=== PATIENT | female | born 1935 | race Caucasian/White ===

== ENCOUNTER 2021-03-03 12:53 | Observation (INO) | payer OTHER, SELFPAY ==
[2021-03-03] VITALS (16 sets, daily range): BP systolic 138–186; BP diastolic 64–82; PULSE 65–87; RESP 14–23; TEMP 36.5–36.6; O2SAT 93–100; BMI 20.5; BMI 21.2
--- NOTE | 2021-03-03 13:00 | ED.SYNCOPE ---
HPI - Syncope General Chief Complaint: Syncope Stated Complaint: Near Syncope Time Seen by Provider: 03/03/21 12:59 History of Present Illness HPI narrative: Gretta presents today with chief complaint of feeling like she was going to pass out. This feeling came on suddenly about an hour and half ago. She reports that she was sitting down at the table after eating breakfast. She suddenly felt weak and nauseous. She is concerned that if she stood up she would pass out. Her symptoms have improved but she is still feeling more weak than normal. She was having breakfast with her friends as she is from out of town visiting. She was able to communicate and speak clearly through the entire process per patient and her . She has past medical history of hypertension and took her antihypertensives this morning. No recent dose adjustments. She denies any significant chest pain, upper back pain, headache, dizziness, vision changes, or any other acute concerns or complaints. She denies any cardiac history aside from hypertension. She denies any previous heart attacks, strokes, or feeling similar to this in the past. Related Data Home Medications Medication Instructions Recorded Confirmed atenolol 25 mg tablet 25 mg PO BID 03/03/21 03/03/21 brimonidine 0.2 % eye drops 1 drp EYE-BOTH TID 03/03/21 03/03/21 dorzolamide 22.3 mg-timolol 6.8 1 drp EYE-BOTH TID 03/03/21 03/03/21 mg/mL eye drops hydrochlorothiazide 25 mg tablet 25 mg PO DAILY PRN 03/03/21 03/03/21 latanoprost 0.005 % eye drops 1 drp EYE-BOTH BEDTIME 03/03/21 03/03/21 Allergies Allergy/AdvReac Type Severity Reaction Status Date / Time Penicillins Allergy Unknown Verified 03/03/21 13:07 Review of Systems Review of Systems Narrative: As per HPI Patient History Medical History Glaucoma Hypertension, essential Surgical History History of right hip replacement Family History Mother Cancer Hypertension Father Cancer Social History household members: spouse Smoking Status: Former smoker alcohol intake: current Exam Narrative Exam Narrative: Exam Narrative: Const General: cooperative, ill-appearing Nutritional Appearance: average body habitus Orientation: alert and oriented x3 HENMT Head: normal to inspection and atraumatic Ears: hearing grossly normal bilaterally Nose: external nose normal and nares normal Face and sinus: normal facial exam Neck Neck: normal visual inspection and supple, carotid bruits Cardiac Regular rate and rhythm, no discernible murmur, rubs or gallops. Resp Effort & Inspection: normal respiratory effort, able to speak in complete sentences, no audible wheezes, not labored, no nasal flaring and no respiratory distress, clear to auscultation bilaterally. Neuro General: alert, oriented x3, gait not assessed, tone normal and moves all extremities, normal coordination, normal finger-nose, normal rapid alternating movement upper extremity, no cranial nerve deficits. Cognition: normal cognition Speech: speech normal Skin: Slightly pale. No rash or lesions noted. Psych Appearance: grossly normal and well kempt Mental Status: mental status grossly normal Speech and Movement: speech and movement normal Mood: congruent mood Affect: normal affect Initial Vital Signs Initial Vital Signs: Vital Signs Temperature 97.9 F 03/03/21 13:07 Pulse Rate 65 03/03/21 13:07 Respiratory Rate 18 03/03/21 13:07 Blood Pressure 185/82 H 03/03/21 13:07 Pulse Oximetry 97 03/03/21 13:07 Course Course Course Narrative: I just spoke with Dr. George with cardiology. We discussed the patient's case and her concerning EKG findings. He recommended monitoring with telemetry and probable echocardiogram in the a.m.. I will call hospitalist at this time and speak with them. Orders Ordered: Acetaminophen (Acetaminophen 325 Mg Tablet) 650 mg PO Q6HR PRN PRN Reason: Fever/Mild Pain (1-3) Al Hydrox/Mg Hydrox/Simethicone (Mag Hydrox/Alum/Simeth 30 Ml Udc) 30 ml PO Q6HR PRN PRN Reason: Dyspepsia Atenolol (Atenolol 25 Mg Tablet) 25 mg PO BID [facility] Last Admin: 03/03/21 22:00 Dose: 25 mg Documented by: DARNELL Brimonidine Tartrate (Brimonidine 0.2% Ophth 5 Ml) 1 drops EYE-BOTH TID [facility] Last Admin: 03/03/21 23:03 Dose: Not Given Documented by: DARNELL Diphenhydramine HCl (Diphenhydramine 25 Mg Tablet) 50 mg PO BEDTIME PRN PRN Reason: Insomnia Last Admin: 03/03/21 23:41 Dose: 50 mg Documented by: REYMUNDO Dorzolamide/Timolol (Dorzolamide/Timolol Ophth 10 Ml) 1 drops EYE-BOTH TID [facility] Last Admin: 03/03/21 23:04 Dose: Not Given Documented by: DARNELL Enoxaparin Sodium (Enoxaparin 40 Mg/0.4 Ml Syringe) 40 mg SUBCUT DAILY [facility] Sodium Chloride (Normal Saline 0.9%) 1,000 mls @ 100 mls/hr IV CONT [facility] Last Admin: 03/03/21 22:03 Dose: 100 mls/hr Documented by: DARNELL Latanoprost (Latanoprost 0.005% Ophth 2.5 Ml) 1 drops EYE-BOTH BEDTIME [facility] Last Admin: 03/03/21 23:04 Dose: Not Given Documented by: DARNELL Naloxone HCl (Naloxone 0.4 Mg/Ml Vial) 0.2 mg IV Q2MIN PRN PRN Reason: Opiate Reversal Ondansetron HCl (Ondansetron 4 Mg/2 Ml Inj) 4 mg IV Q8HR PRN PRN Reason: Nausea And Vomiting Sennosides (Sennosides 8.6 Mg Tablet) 17.2 mg PO BEDTIME [facility] Last Admin: 03/03/21 22:00 Dose: 17.2 mg Documented by: DARNELL Discontinued Medications Aspirin (Aspirin 81 Mg Chew Tab) 324 mg PO NOW ONE Stop: 03/03/21 13:55 Last Admin: 03/03/21 14:01 Dose: 324 mg Documented by: ALEXANDRE Ondansetron HCl (Ondansetron 4 Mg/2 Ml Inj) 4 mg IV NOW ONE Stop: 03/03/21 13:00 Last Admin: 03/03/21 13:04 Dose: 4 mg Documented by: ELE Vital Signs Vital signs: Vital Signs - 8 hr 03/03/21 13:07 03/03/21 14:57 03/03/21 15:00 Temperature 97.9 F Pulse Rate 65 80 76 Pulse Rate [Orthostatic Lying] Pulse Rate [Orthostatic Sitting] Pulse Rate [Orthostatic Standing] Respiratory Rate 18 23 Blood Pressure 185/82 H 146/64 H Blood Pressure [Orthostatic Lying] Blood Pressure [Orthostatic Sitting] Blood Pressure [Orthostatic Standing] Pulse Oximetry 97 99 100 03/03/21 15:30 03/03/21 16:49 Temperature Pulse Rate 77 Pulse Rate [Orthostatic Lying] 76 Pulse Rate [Orthostatic Sitting] 76 Pulse Rate [Orthostatic Standing] 81 Respiratory Rate 22 Blood Pressure 139/66 Blood Pressure [Orthostatic Lying] 138/68 Blood Pressure [Orthostatic Sitting] 144/81 H Blood Pressure [Orthostatic Standing] 157/72 H Pulse Oximetry 98 MDM - Syncope Lab Data Result diagrams: 03/03/21 12:45 03/04/21 06:35 Labs: Lab Results 03/03/21 03/03/21 03/03/21 Range/Units 12:45 12:45 12:45 WBC 8.8 (4.5-11.0) X10^3/uL RBC 4.52 (4.0-5.2) X10^6/uL Hgb 13.1 (12.0-16.0) g/dL Hct 39.4 (36-46) % MCV 87.2 (80-100) fL MCH 29.0 (26-34) PG MCHC 33.3 (30-36) % RDW 13.8 (11.6-14.8) % Plt Count 394 (150-400) X10^3/uL Neut % (Auto) 63.3 (50-75) % Lymph % (Auto) 23.4 L (25-40) % [place] % (Auto) 11.0 (3-14) % Eos % (Auto) 1.7 L (2-4) % Baso % (Auto) 0.6 (0-2) % Neut # (Auto) 5600 (0446-3663) /uL Lymph # (Auto) 2100 (9546-0055) /uL [place] # (Auto) 1000 H (0-900) /uL Eos # (Auto) 100 (0-450) /uL Baso # (Auto) 100 (0-100) /uL PT 11.3 (10.1-12.7) SECONDS INR 1.0 (0.9-1.3) Sodium 133 L (137-145) mmol/L Potassium 3.6 (3.4-5.1) mmol/L Chloride 96 L (98-107) mmol/L Carbon Dioxide 26 (22-32) mmol/L BUN 22 H (7-17) mg/dL Creatinine 0.76 (0.52-1.04) mg/dL Estimated GFR > 60.0 (>60) mL/min BUN/Creatinine Ratio 28.9 H (6-22) Glucose 86 (80-110) mg/dL Calcium 10.2 (8.4-10.2) mg/dL Magnesium (1.6-2.3) mg/dL Total Bilirubin 0.5 (0.2-1.3) mg/dL AST 25 (14-36) IU/L ALT 14 (<35) IU/L Alkaline Phosphatase 75 (38-126) U/L Total Creatine Kinase 35 (30-135) U/L CK-MB (CK-2) TNP CK-MB (CK-2) Rel Index TNP Troponin I < 0.012 (0.01-0.034) ng/mL NT-Pro-B Natriuret Pep (<450) pg/mL Total Protein 7.3 (6.3-8.2) g/dL Albumin 4.3 (3.5-5.0) g/dL Globulin 3.0 (1.7-4.1) g/dL Albumin/Globulin Ratio 1.4 (1.0-2.8) Urine RBC (0-5/HPF) Urine WBC (0-5/HPF) Urine Bacteria (None) Ur Culture Indicated? 03/03/21 03/03/21 03/03/21 Range/Units 12:45 15:28 15:28 WBC (4.5-11.0) X10^3/uL RBC (4.0-5.2) X10^6/uL Hgb (12.0-16.0) g/dL Hct (36-46) % MCV (80-100) fL MCH (26-34) PG MCHC (30-36) % RDW (11.6-14.8) % Plt Count (150-400) X10^3/uL Neut % (Auto) (50-75) % Lymph % (Auto) (25-40) % [place] % (Auto) (3-14) % Eos % (Auto) (2-4) % Baso % (Auto) (0-2) % Neut # (Auto) (2746-8040) /uL Lymph # (Auto) (9834-4843) /uL Meriwether # (Auto) (0-900) /uL Eos # (Auto) (0-450) /uL Baso # (Auto) (0-100) /uL PT (10.1-12.7) SECONDS INR (0.9-1.3) Sodium (137-145) mmol/L Potassium (3.4-5.1) mmol/L Chloride (98-107) mmol/L Carbon Dioxide (22-32) mmol/L BUN (7-17) mg/dL Creatinine (0.52-1.04) mg/dL Estimated GFR (>60) mL/min BUN/Creatinine Ratio (6-22) Glucose (80-110) mg/dL Calcium (8.4-10.2) mg/dL Magnesium 1.8 (1.6-2.3) mg/dL Total Bilirubin (0.2-1.3) mg/dL AST (14-36) IU/L ALT (<35) IU/L Alkaline Phosphatase (38-126) U/L Total Creatine Kinase (30-135) U/L CK-MB (CK-2) CK-MB (CK-2) Rel Index Troponin I < 0.012 (0.01-0.034) ng/mL NT-Pro-B Natriuret Pep 439 (<450) pg/mL Total Protein (6.3-8.2) g/dL Albumin (3.5-5.0) g/dL Globulin (1.7-4.1) g/dL Albumin/Globulin Ratio (1.0-2.8) Urine RBC (0-5/HPF) Urine WBC (0-5/HPF) Urine Bacteria (None) Ur Culture Indicated? 03/03/21 Range/Units 16:45 WBC (4.5-11.0) X10^3/uL RBC (4.0-5.2) X10^6/uL Hgb (12.0-16.0) g/dL Hct (36-46) % MCV (80-100) fL MCH (26-34) PG MCHC (30-36) % RDW (11.6-14.8) % Plt Count (150-400) X10^3/uL Neut % (Auto) (50-75) % Lymph % (Auto) (25-40) % [place] % (Auto) (3-14) % Eos % (Auto) (2-4) % Baso % (Auto) (0-2) % Neut # (Auto) (7096-9581) /uL Lymph # (Auto) (0219-9898) /uL [place] # (Auto) (0-900) /uL Eos # (Auto) (0-450) /uL Baso # (Auto) (0-100) /uL PT (10.1-12.7) SECONDS INR (0.9-1.3) Sodium (137-145) mmol/L Potassium (3.4-5.1) mmol/L Chloride (98-107) mmol/L Carbon Dioxide (22-32) mmol/L BUN (7-17) mg/dL Creatinine (0.52-1.04) mg/dL Estimated GFR (>60) mL/min BUN/Creatinine Ratio (6-22) Glucose (80-110) mg/dL Calcium (8.4-10.2) mg/dL Magnesium (1.6-2.3) mg/dL Total Bilirubin (0.2-1.3) mg/dL AST (14-36) IU/L ALT (<35) IU/L Alkaline Phosphatase (38-126) U/L Total Creatine Kinase (30-135) U/L CK-MB (CK-2) CK-MB (CK-2) Rel Index Troponin I (0.01-0.034) ng/mL NT-Pro-B Natriuret Pep (<450) pg/mL Total Protein (6.3-8.2) g/dL Albumin (3.5-5.0) g/dL Globulin (1.7-4.1) g/dL Albumin/Globulin Ratio (1.0-2.8) Urine RBC 0-1/hpf (0-5/HPF) Urine WBC 10-30/hpf H (0-5/HPF) Urine Bacteria Many (>30) H (None) Ur Culture Indicated? Specimen cultured Point of Care Testing Glucose POC 86 Urine Dip Bedside Urine Glucose Negative Bedside Urine Bilirubin - Negative Bedside Urine Ketone - Negative Urine Specific [place] 1.015 Bedside Urine Occult Blood - Negative Bedside Urine pH 6.0 Bedside Urine Protein - Negative Bedside Urine Urobilinogen - Negative Bedside Urine Nitrite - Negative Bedside Urine Leukocytes ++ 125 Esterase MDM Narrative Medical decision making narrative: Differential diagnosis includes acute coronary syndrome, cardiac arrhythmia, stroke, TIA, dehydration. Patient has had a reassuring evaluation here in the emergency department. She remains neurologically intact without any obvious deficits. EKG does show right bundle-branch block, first-degree AV block, and bifascicular block. No previous EKGs to compare to. Patient denies any chest pain, difficulty breathing, diaphoresis. No known cardiac history aside from hypertension. Troponins x2 are negative. Orthostatic vital signs are within normal limits and patient was asymptomatic. She was ambulatory around the department for road rest without any reproduction of her symptoms or concerning vital sign changes. Per history, she did not have any focal deficits which is reassuring that a TIA did not occur. Her EKG findings are new. Review of an EKG in 2013 requested from her PCP did not show any specific conduction abnormalities. After discussion with cardiology, we will admit the patient for obs on telemetry. All of this was discussed with the patient and her and they agreed to plan. Discharge Plan Departure Patient Disposition: Admitted As Inpatient Clinical Impression: Pre-syncope, First degree heart block, RBBB, LAFB (left anterior fascicular block) Discharge Date/Time: 03/03/21 18:39 Admit Date/Time: 03/03/21 17:51 Admit Provider: Farhad Jesus
[2021-03-03] MEDS: ONDANSETRON 4 MG/2 ML INJ IV (13:04)
--- NOTE | 2021-03-03 13:15 | DI.RAD.S_ITS ---
PROCEDURE: XR CHEST 1V INDICATIONS: altered mental status TECHNIQUE: One view of the chest was acquired. COMPARISON: None. FINDINGS: Surgical changes and devices: None. Lungs and pleura: Lungs are clear. No pleural effusions or pneumothorax. Mediastinum: Mediastinal contours appear normal. Heart size is normal. Bones and chest wall: No suspicious bony lesions. Overlying soft tissues appear unremarkable. Severe bilateral glenohumeral joint degenerative arthritis. IMPRESSION: No evidence acute pulmonary process. Dictated by: Elías Holder M.D. on 03/03/2021 at 13:32 Approved by: Elías Holder M.D. on 03/03/2021 at 13:33
--- NOTE | 2021-03-03 13:24 | DI.CT.S_ITS ---
PROCEDURE: CT HEAD/BRAIN WO CON INDICATIONS: pre syncope TECHNIQUE: Noncontrast 4.5 mm thick angled axial sections acquired from the foramen magnum to the vertex, with coronal and sagittal reformats. For radiation dose reduction, the following was used: automated exposure control, adjustment of mA and/or kV according to patient size. COMPARISON: [facility], CR, XR CHEST 1V, 03/03/2021, 13:17. FINDINGS: Image quality: Excellent. CSF spaces: Basal cisterns are patent. No extra-axial fluid collections. The ventricles are symmetric in size and shape. Brain: No intracranial bleeds or masses. There is cerebral volume loss for age, with resultant ventricular and sulcal prominence. There are periventricular and deep white matter chronic small vessel ischemic changes. There is intracranial internal carotid artery atherosclerosis. Skull and face: Calvarium and visualized facial bones appear intact, without suspicious lesions. Incidental note is made of hyperostosis frontalis. This is not considered to be pathologic in a woman of this age. Sinuses: Visualized sinuses and mastoids are clear. IMPRESSION: Noncontrast head CT examination within normal limits for age, without an imaging explanation found for the patient's presenting history. Dictated by: Wyatt Mcgee M.D. on 03/03/2021 at 12:44 Approved by: Wyatt Mcgee M.D. on 03/03/2021 at 12:45
[2021-03-03 13:29] LABS: Alanine Aminotransferase 14 IU/L (<35); Albumin 4.3 g/dL (3.5-5.0); Albumin Globulin Ratio 1.4 (1.0-2.8); Alkaline Phosphatase 75 U/L (38-126); Aspartate Aminotransferase 25 IU/L (14-36); BUN Creatinine Ratio 28.9 (6-22); Bilirubin Total 0.5 mg/dL (0.2-1.3); Blood Urea Nitrogen 22 mg/dL (7-17); Calcium 10.2 mg/dL (8.4-10.2); Carbon Dioxide 26 mmol/L (22-32); Chloride 96 mmol/L (98-107); Creatine Kinase 35 U/L (30-135); Estimated Glomerular Filt Rate > 60.0 mL/min (>60); Glucose 86 mg/dL (80-110); HEMOLYSIS 27 (0-50); Potassium 3.6 mmol/L (3.4-5.1); Sodium 133 mmol/L (137-145); Total Protein 7.3 g/dL (6.3-8.2)
[2021-03-03 13:40] LABS: Add Manual Diff / Slide Review NO; Basophils Absolute Auto 100 /uL (0-100); Basophils Percent Auto 0.6 % (0-2); Eosinophils Absolute Auto 100 /uL (0-450); Eosinophils Percent Auto 1.7 % (2-4); Hematocrit 39.4 % (36-46); Hemoglobin 13.1 g/dL (12.0-16.0); Lymphocytes Absolute Auto 2100 /uL (1100-4500); Lymphocytes Percent Auto 23.4 % (25-40); Mean Corpuscular HGB Conc 33.3 % (30-36); Mean Corpuscular Volume 87.2 fL (80-100); Monocytes Absolute Auto 1000 /uL (0-900); Neutrophils Absolute Auto 5600 /uL (1500-7000); Neutrophils Percent Auto 63.3 % (50-75); Platelet Count 394 X10^3/uL (150-400); Red Blood Cell Count 4.52 X10^6/uL (4.0-5.2); Red Cell Distribution Width 13.8 % (11.6-14.8); Troponin I < 0.012 ng/mL (0.01-0.034); White Blood Cell Count 8.8 X10^3/uL (4.5-11.0)
[2021-03-03] MEDS: ASPIRIN 81 MG CHEW TAB 324 MG PO (14:01)
[2021-03-03 14:02] LABS: Prothrombin Time 11.3 SECONDS (10.1-12.7)
[2021-03-03 14:52] LABS: NT-proBNP (BNP-Adult 18+) 439 pg/mL (<450)
[2021-03-03 16:01] LABS: Troponin I < 0.012 ng/mL (0.01-0.034)
--- NOTE | 2021-03-03 16:51 | PC.NURSE ---
Pt did well ambulating from the bathroom and back.
--- NOTE | 2021-03-03 16:56 | PC.NURSE ---
Patient was able to get out of bed and walk SBA to the bathroom. Pt did well and stopped a few times to rest.
[2021-03-03 18:23] LABS: Bacteria Urine Many (>30); Culture Indicated Urine Specimen Cultured; RBC Urine 0-1/HPF (0-5/HPF); WBC Urine 10-30/HPF (0-5/HPF)
[2021-03-03 19:41] LABS: COVID19 - ADMIT (NP swab/PCR) Negative (Negative)
[2021-03-03 20:08] LABS: Magnesium 1.8 mg/dL (1.6-2.3)
--- NOTE | 2021-03-03 21:04 | P.HP_ITS ---
History of Present Illness History of Present Illness Date Patient Seen: 03/03/21 Time Patient Seen: 20:00 Chief complaint: Near Syncope Narrative: Patient is a 85 year old female Gretta Rodriguez who presented to the ED today with chief complaint of feeling like she was going to pass out. This feeling came on suddenly about an hour and half ago. She states that she lacked the balance & coordination to even walk with her walker. She reports that she was sitting down at the table after eating breakfast. She suddenly felt weak and nauseous. She is concerned that if she stood up she would pass out. Her symptoms have improved but she is still feeling more weak than normal. She was having breakfast with her friends as she is from out of town visiting. She was able to communicate and speak clearly through the entire process per patient and her . She has past medical history of hypertension and took her antihypertensives this morning. Patient also reports that she takes hydrochlorothiazide daily as needed for lower extremity edema and started taking it once daily approximately 1 month ago. Patient also has history of glaucoma. She denies any significant chest pain, upper back pain, headache, dizziness, vision changes, or any other acute concerns or complaints. She denies any cardiac history aside from hypertension. She denies any previous heart attacks, strokes, or feeling similar to this in the past. Upon admit patient is resting comfortably in bed and denies any signs or symptoms at this time. Patient appears dry volume depleted, dry mucous membranes and poor skin turgor. Patient's vitals upon admit temp was stable at 97.7, BP slightly elevated at 150 7/65, HR 77, RR 19, O2 sat 98% on room air. Patient's CBC was unremarkable for any anemias, patient's CMP demonstrated slight hyponatremia sodium 133, chloride 96, BUN 22. All a chemistries were normal patient's BNP was mildly elevated at 439, troponin negative at< 0.012. Urine was positive and sent for culture. Head CT: Within normal limits for age, no acute findings that could explain patient's symptoms. Chest x-ray was without any acute cardiopulmonary processes. EKG does show right bundle-branch block, first-degree AV block, and bifascicular block. Dr. Wolf was able to consult wire twisting machine operator Dr. Barrios from [facility], who stated patient's previous EKG from 2013 was normal sinus rhythm without any block, noting that this was a change. Patient History Medical History Glaucoma Hypertension, essential Surgical History History of right hip replacement Family & Social History Family History Mother Cancer Hypertension Father Cancer Social History: household members spouse Prior Living Arrangements House Safety & Behavioral: Feels Safe in Current Yes Environment Been Physically Hurt or No Threatened By a Person Suicidal Ideation Description None Suicide Plan Description No Plan Tobacco & Substance use: Smoking Status Former smoker smoked for 35 yrs, quit 30 yrs ago. alcohol intake current alcohol intake frequency a few times a week 1-2 glasses of wine QD Substance Use Type does not use Meds Home Medications and Allergies Home Medications Medication Instructions Recorded Confirmed Type atenolol 25 mg tablet 25 mg PO BID 03/03/21 03/03/21 History brimonidine 0.2 % eye drops 1 drp EYE-BOTH TID 03/03/21 03/03/21 History dorzolamide 22.3 mg-timolol 6.8 1 drp EYE-BOTH TID 03/03/21 03/03/21 History mg/mL eye drops hydrochlorothiazide 25 mg tablet 25 mg PO DAILY PRN 03/03/21 03/03/21 History latanoprost 0.005 % eye drops 1 drp EYE-BOTH BEDTIME 03/03/21 03/03/21 History Allergies Allergy/AdvReac Type Severity Reaction Status Date / Time Penicillins Allergy Unknown Verified 03/03/21 13:07 Review of Systems Review of Systems Narrative: Patient denies any signs or symptoms at this time, all signs or symptoms were reviewed with the patient to include all that already documented within chart. Exam Vital Signs (past 8 hours): - 03/03/21 13:07 03/03/21 14:57 03/03/21 15:00 Temperature 97.9 F Pulse Rate 65 80 76 Pulse Rate [Orthostatic Lying] Pulse Rate [Orthostatic Sitting] Pulse Rate [Orthostatic Standing] Respiratory Rate 18 23 Blood Pressure 185/82 H 146/64 H Blood Pressure [Orthostatic Lying] Blood Pressure [Orthostatic Sitting] Blood Pressure [Orthostatic Standing] Pulse Oximetry 97 99 100 03/03/21 15:30 03/03/21 16:00 03/03/21 16:22 Temperature Pulse Rate 77 76 76 Pulse Rate [Orthostatic Lying] Pulse Rate [Orthostatic Sitting] Pulse Rate [Orthostatic Standing] Respiratory Rate 22 17 Blood Pressure 139/66 138/68 144/81 H Blood Pressure [Orthostatic Lying] Blood Pressure [Orthostatic Sitting] Blood Pressure [Orthostatic Standing] Pulse Oximetry 98 98 93 03/03/21 16:24 03/03/21 16:42 03/03/21 16:49 Temperature Pulse Rate 80 87 Pulse Rate [Orthostatic Lying] 76 Pulse Rate [Orthostatic Sitting] 76 Pulse Rate [Orthostatic Standing] 81 Respiratory Rate Blood Pressure 157/72 H 181/81 H Blood Pressure [Orthostatic Lying] 138/68 Blood Pressure [Orthostatic Sitting] 144/81 H Blood Pressure [Orthostatic Standing] 157/72 H Pulse Oximetry 99 98 03/03/21 17:00 03/03/21 17:30 03/03/21 17:31 Temperature Pulse Rate 71 74 74 Pulse Rate [Orthostatic Lying] Pulse Rate [Orthostatic Sitting] Pulse Rate [Orthostatic Standing] Respiratory Rate 19 15 14 Blood Pressure 141/69 H 165/72 H Blood Pressure [Orthostatic Lying] Blood Pressure [Orthostatic Sitting] Blood Pressure [Orthostatic Standing] Pulse Oximetry 98 98 96 03/03/21 18:00 03/03/21 18:55 Temperature 97.7 F Pulse Rate 73 77 Pulse Rate [Orthostatic Lying] Pulse Rate [Orthostatic Sitting] Pulse Rate [Orthostatic Standing] Respiratory Rate 19 17 Blood Pressure 186/72 H 157/65 H Blood Pressure [Orthostatic Lying] Blood Pressure [Orthostatic Sitting] Blood Pressure [Orthostatic Standing] Pulse Oximetry 99 98 Oxygen Delivery Method Room Air Oxygen Flow Rate 0 Narrative Exam Narrative: General: Patient is a well-developed, moderately nourished, thin elderly female who looks fluid depleted, in no distress at this time. HEENT: Normocephalic, atraumatic, extraocular muscles intact, oral pharynx is clear and mucous membranes are dry. Neck is supple and symmetric, trachea is midline, no adenopathy, no thyroid enlargement, nontender, no masses palpated. Negative for JVD Chest: Normal AP diameter and contour without kyphoscoliosis, no nasal flaring, retractions, or tachypneic labored Lungs: Auscultation of all lung coyle are clear without adventitious sounds, wheezes, rhonchi, or rales. Cardio: S1 & S2 with regular rate and rhythm with possible whooshing murmur heard loudest over left midclavicular line about 4th intercostal space but without rubs, or gallops, no carotid bruit, no cardiac pulsations present. Abdomen: Soft nontender, negative for organomegaly, or masses. Bowel sounds are present in all 4 quadrants without guarding or rebound, no CVA tenderness. Musculoskeletal: Muscle strength and tone are equal within normal limits, no deformity, crepitus, effusions, cyanosis, clubbing or edema present. Full range of motion intact radial and pedal pulses are normal. Skin: Warm dry, poor skin turgor and intact without rashes, ulcerations or petechiae. Neuro: Alert and orientated x3, strength is +5/5 in all extremities, sensation to touch intact, no gross deficits noted of cranial nerves. Psych: Patient has a well-kept appearance, appropriate affect, mental status attitude thought context and judgment are appropriate for age. Objective Labs Result Diagrams: 03/03/21 12:45 03/03/21 12:45 Labs: Laboratory Results - last 24 hr 03/03/21 03/03/21 03/03/21 12:45 12:45 12:45 WBC 8.8 RBC 4.52 Hgb 13.1 Hct 39.4 MCV 87.2 MCH 29.0 MCHC 33.3 RDW 13.8 Plt Count 394 Neut % (Auto) 63.3 Lymph % (Auto) 23.4 L Dewitt % (Auto) 11.0 Eos % (Auto) 1.7 L Baso % (Auto) 0.6 Neut # (Auto) 5600 Lymph # (Auto) 2100 Dewitt # (Auto) 1000 H Eos # (Auto) 100 Baso # (Auto) 100 PT 11.3 INR 1.0 Sodium 133 L Potassium 3.6 Chloride 96 L Carbon Dioxide 26 BUN 22 H Creatinine 0.76 Estimated GFR > 60.0 BUN/Creatinine Ratio 28.9 H Glucose 86 Calcium 10.2 Magnesium Total Bilirubin 0.5 AST 25 ALT 14 Alkaline Phosphatase 75 Total Creatine Kinase 35 CK-MB (CK-2) TNP CK-MB (CK-2) Rel Index TNP Troponin I < 0.012 NT-Pro-B Natriuret Pep Total Protein 7.3 Albumin 4.3 Globulin 3.0 Albumin/Globulin Ratio 1.4 Urine RBC Urine WBC Urine Bacteria Ur Culture Indicated? SARS-CoV-2 (PCR) 03/03/21 03/03/21 03/03/21 12:45 15:28 15:28 WBC RBC Hgb Hct MCV MCH MCHC RDW Plt Count Neut % (Auto) Lymph % (Auto) Dewitt % (Auto) Eos % (Auto) Baso % (Auto) Neut # (Auto) Lymph # (Auto) Dewitt # (Auto) Eos # (Auto) Baso # (Auto) PT INR Sodium Potassium Chloride Carbon Dioxide BUN Creatinine Estimated GFR BUN/Creatinine Ratio Glucose Calcium Magnesium 1.8 Total Bilirubin AST ALT Alkaline Phosphatase Total Creatine Kinase CK-MB (CK-2) CK-MB (CK-2) Rel Index Troponin I < 0.012 NT-Pro-B Natriuret Pep 439 Total Protein Albumin Globulin Albumin/Globulin Ratio Urine RBC Urine WBC Urine Bacteria Ur Culture Indicated? SARS-CoV-2 (PCR) 03/03/21 03/03/21 16:45 17:54 WBC RBC Hgb Hct MCV MCH MCHC RDW Plt Count Neut % (Auto) Lymph % (Auto) Dewitt % (Auto) Eos % (Auto) Baso % (Auto) Neut # (Auto) Lymph # (Auto) Dewitt # (Auto) Eos # (Auto) Baso # (Auto) PT INR Sodium Potassium Chloride Carbon Dioxide BUN Creatinine Estimated GFR BUN/Creatinine Ratio Glucose Calcium Magnesium Total Bilirubin AST ALT Alkaline Phosphatase Total Creatine Kinase CK-MB (CK-2) CK-MB (CK-2) Rel Index Troponin I NT-Pro-B Natriuret Pep Total Protein Albumin Globulin Albumin/Globulin Ratio Urine RBC 0-1/hpf Urine WBC 10-30/hpf H Urine Bacteria Many (>30) H Ur Culture Indicated? Specimen cultured SARS-CoV-2 (PCR) Negative Assessment & Plan Assessment & Plan narrative: Patient is a relatively healthy 85-year-old female with a history of hypertension and glaucoma who reports several episodes of presyncope within last 24 hours. In ER patient's EKG demonstrated a new right bundle vernon block, first-degree AV block and bifascicular block which were new changes from previous EKG. Patient will be monitored overnight gentle rehyd ration repeat troponins and echo tomorrow. 1. Presyncope in the setting of new right bundle-branch block, first-degree AV block, and bifascicular block, acute, present on admission -Rule out hypoglycemia, hypotension, dehydration, stroke, TIA, UTI -patient did verbalize to me that she has been taking her HCTZ for approximately 1 month I suspect possible dehydration in combination with new EKG changes. UA was also positive and sent for culture. -EKG: right bundle-branch block, first-degree AV block, and bifascicular block, sodium 133, chloride 96, BUN 22, BNP 439, troponin negative at< 0.012 x2. -orthostatics Q shift, normal saline 100 cc/hour for gentle rehydration, blood sugar checks for 24 hours ACHS, Heart Score:5 -echo ordered for tomorrow, repeat troponin total x3. -Fall precautions, PT/OT evaluation. -urinalysis cultures pending -Labs:repeat BNP, Trop, TSH, BMP in am -lost IV access while after hours PICC RN was onsite for another patient, ordered midline placement due to multiple failed attempts at IV start. 2. Mild hyponatremia, acute, present on admission -as evidence by sodium 133, provide gentle rehydration NS 100cc/hr. 3. Essential hypertension, acute on chronic, present on admission -as evidence by BP 157/65 upon admit -continue patient's home atenolol 25 mg b.i.d., may need to increase based on patient's blood pressure readings. -holding patient's HCTZ due to concerns of dehydration 4. Glaucoma, chronic, present on admission -patient to continue her home eye drops as prescribed Code status: DNR Surrogate decision maker: Ildefonso Rodriguez Spouse COVID PCR: Negative DVT/VTE prophylaxis: Lovenox 40 and SCDs Expected length of stay: Less than 2 midnight Scores GCS [place] coma scale eye opening: Spontaneous [place] coma scale verbal response: Orientated Jazmin coma scale motor response: Obey commands [place] coma scale total score: 15 NIHSS Level of Conciousness: Alert, keenly responsive Ask month/age: Answers both questions correctly. Open/close eyes, close hand: Performs both tasks correctly Best gaze horizontal: Normal Visual coyle: No visual loss Facial palsy: Normal symetrical movement Left arm drift: No drift for full 10 sec Right arm drift: No drift for full 10 sec Left leg drift: No drift for full 5 sec Right leg drift: No drift for full 5 sec Limb ataxia: Absent Sensory on face/arms/legs: Normal, no sensory loss Best language: No aphasia, normal Dysarthria: Normal Extinction or inattention: No abnormality Total NIH Stroke scale score: 0 Wells' Criteria for PE Clinical signs and symptoms of DVT: No PE is #1 Dx or equally likely: No Heart rate > 100: No Immobilization at least 3 days or surg in previous 4 weeks: No History of PE or DVT: No Hemoptysis: No Malignancy w/Treatment within 6 months or palliative: No Wells' PE Score total: 0 Quality VTE Deep Vein Thrombosis/Pulmonary Embolism Present on Admission: No MIPS - Admit I confirm the patient?s Advance Care Plan is present, Code status is documented, Surrogate decision maker is in patient?s record [If Yes, STOP here]: Yes
--- NOTE | 2021-03-03 21:10 | DI.ECHO.S_ITS ---
[facility]---------+ [facility] +---------+ : : [address] : : : : [id number] : : : : Phone: [phone] Echocardiogram Report + + :Name: LOLLY HESTER Study Date: 03/04/2021 Height: 64 in : :[facility] ReadingLocation: Weight: 123 lb : : Gender: Female BSA: 1.6 m2 : :: 1935 Age: 85 yrs BP: 141/75 mmHg: :Reason For Study: SYNCOPE, 1ST DEGREE HEART BLOCK : :Ordering Physician: : :BLANCO HERNANDEZ ANALYSIS EVALUATOR-BC Performed By: Joycelyn Deshpande : :Referring: BLANCO HERNANDEZ : + + Interpretation Summary The ejection fraction is estimated to be 55-60%. There is mild mitral regurgitation. There is moderate mitral annular calcification. The aortic valve is moderately calcified. There is discrete nodular thickening of the non- coronary cusp. There is no hemodynamically significant valvular aortic stenosis. Aortic valve area when planimetry it is approximately 1.8 charge entry specialist? There is mild aortic regurgitation. There is mild tricuspid regurgitation. The right ventricular systolic pressure is estimated to be at least 41 mmHg based on an estimated right atrial pressure of 15 mm Hg. Procedure: A two-dimensional transthoracic echocardiogram with color flow and Doppler was performed. The study quality was technically adequate. There is no prior echocardiogram noted for this patient. The patient was in sinus bradycardia with heart rates between 52-60 bpm during the exam. Left Ventricle: The left ventricle is normal in size and wall thickness. The ejection fraction is estimated to be 55-60%. There are no focal wall motion abnormalities. Right Ventricle: The right ventricle is borderline dilated. The right ventricular systolic function is normal. Atria: The left atrium is mildly dilated. The right atrium is moderately dilated. There is no Doppler evidence for an interatrial shunt. Mitral Valve: The mitral valve leaflets appear mildly thickened, but open well. There is moderate mitral annular calcification. There is mild mitral regurgitation. Aortic Valve: The aortic valve is moderately calcified. There is discrete nodular thickening of the non- coronary cusp. There is moderate aortic valve sclerosis. There is no hemodynamically significant valvular aortic stenosis. Aortic valve area when planimetry it is approximately 1.8 charge entry specialist?. There is mild aortic regurgitation. Tricuspid Valve: Tricuspid leaflets are thickened. There is mild tricuspid regurgitation. The right ventricular systolic pressure is estimated to be at least 41 mmHg based on an estimated right atrial pressure of 15 mm Hg. Pulmonic Valve: The pulmonic valve is not well seen, but is grossly normal. There is mild pulmonic regurgitation. Great Vessels: The aortic root is normal size. The dimensions of the ascending aorta are normal. The IVC is dilated (diameter is greater than 2.1 cm) and it collapses less than 50% with a sniff. This suggests a high right atrial pressure of 15 mm Hg. Pericardium/ Pleura There is no pericardial effusion. There is no pleural effusion. MMode/2D Measurements & Calculations LVIDd: 4.5 cm LVOT diam: 2.0 cm LVIDs: 2.9 cm Ao root diam: 3.0 cm FS: 35.3 % asc Aorta Diam: 2.9 cm IVSd: 0.93 cm Ao Arch Diam (Prox Trans): 2.6 cm LVPWd: 0.78 cm LV fernandez. diameter/BSA (cm/m^2): 2.8 LV sys. diameter/BSA (cm/m^2): 1.8 LA A2 area: 20.7 cm2 RA long axis: 5.5 cm LA A4 area: 15.8 cm2 RA area: 21.4 cm2 LA length (vol): 5.0 cm RA vol: 71.1 ml LA vol: 56.0 ml RA : 44.7 ml/m2 LA vol index: 35.2 ml/m2 IVC diam: 2.1 cm RVD1 (basal): 4.2 cm TAPSE: 2.0 cm EMMY (plan): 1.8 cm2 Doppler Measurements & Calculations Ao V2 max: 158.1 cm/sec LVOT Max Ric: 71.0 cm/sec Ao V2 mean: 100.0 cm/sec LV V1 max P.0 mmHg Ao max P.0 mmHg LV V1 VTI: 15.8 cm Ao mean P.8 mmHg EMMY(I,D): 1.3 cm2 Ao V2 VTI: 35.4 cm EMMY(V,D): 1.4 cm2 sev ratio: 0.45 EMMY indexed to BSA (cm^2/m^2): 0.85 AI P1/2t: 816.4 msec AI dec slope: 115.5 cm/sec2 MV E max ric: 87.6 cm/sec TR max ric: 256.4 cm/sec MV A max irc: 50.0 cm/sec TR max P.3 mmHg MV E/A: 1.8 PA V2 max: 73.9 cm/sec Med Peak E' Ric: 6.8 cm/sec PA V2 mean: 51.0 cm/sec E/E' med: 12.9 PA mean P.2 mmHg Lat Peak E' Ric: 11.0 cm/sec PA pr(Accel): 24.2 mmHg E/E' lat: 7.9 E/e' average: 10.4 MV dec time: 0.19 sec SV(LVOT): 47.6 ml Reading Physician:12:28 PM
[2021-03-03] MEDS: atenoloL 25 MG TABLET PO (22:00)
[2021-03-03] MEDS: SENNOSIDES 8.6 MG TABLET 17.2 MG PO (22:00)
[2021-03-03] MEDS: SODIUM CHLORIDE 0.9% 1,000 ML 100 ML IV (22:03)
--- NOTE | 2021-03-03 23:39 | PC.NURSE ---
admit/Evening Shift Note- Patient arrived via wheelchair from ER a 185. Patient alert ad oreinted and able to make needs known to staff. Admit questions done, medications reviewed, physical assessment done, and skin check completed. No complaints of pain or discomfort at this time. Patient oriented to bed and bed controls, room, lights, phone, ,menu, bathroom, and callbell/tv remote. IV line to right AV leaky and occluded. IV line removed and bandage applied. unable to restart IV due to difficult veins. Midline placed to LUE. Patient tolerated. Hopspitalist Ok'ED patient to used ow eye drops tonight. Patient took per home instructions. Safety measures in place. Patient high fall risk. Patient agrees to call for assistance and use walker for now. alarm actiavted. Callbell and phone within reach. will continue to monitor.
[2021-03-03] MEDS: diphenhydrAMINE 25 MG TABLET 50 MG PO (23:41)
[2021-03-04] VITALS: BP 139/49; BP 140/73; BP 141/75; PULSE 64; PULSE 66; PULSE 70; RESP 18; TEMP 36.3; O2SAT 98
[2021-03-04 03:00] VITALS: O2SAT 99
[2021-03-04 05:50] VITALS: BP 155/59; PULSE 65; RESP 18; TEMP 36.6; O2SAT 98
[2021-03-04 07:00] VITALS: BP 155/76; PULSE 59
[2021-03-04 07:00] LABS: BUN Creatinine Ratio 24.1 (6-22); Blood Urea Nitrogen 13 mg/dL (7-17); Calcium 9.1 mg/dL (8.4-10.2); Carbon Dioxide 26 mmol/L (22-32); Chloride 103 mmol/L (98-107); Estimated Glomerular Filt Rate > 60.0 mL/min (>60); Glucose 98 mg/dL (80-110); HEMOLYSIS < 15 (0-50); Potassium 3.2 mmol/L (3.4-5.1); Sodium 134 mmol/L (137-145)
[2021-03-04 07:09] LABS: NT-proBNP (BNP-Adult 18+) 535 pg/mL (<450)
[2021-03-04 07:12] LABS: Troponin I < 0.012 ng/mL (0.01-0.034)
[2021-03-04 07:43] LABS: TSH w/ Reflex to FT4 1.07 uIU/mL (0.47-4.68)
--- NOTE | 2021-03-04 08:45 | PT.IIE ---
Medical History (Last Reviewed 03/03/21 @ 22:02 by Petra Perez [facility]) Glaucoma Hypertension, essential Physical Therapy Inpatient Evaluation/Re-Eval M1 PT/OT-IP Prior Functional Status Start: 03/04/21 12:38 Freq: NEEDED Status: Active Protocol: Document 03/04/21 08:45 AB (Rec: 03/04/21 12:51 AB [id number]) Medical Review Prior Functional Status Medical History Reviewed Yes Communication able to make needs known Mobility and Gait pt stated that she is modified independent with all mobilities and ambulation using either a SPC or 4WW indoors but uses a standard walker for outdoor mobility; pt stated that she started getting weaker for the passed 4 months and needing to use a walker Social History Household Members spouse Living Arrangements House Number of Floors (Floors) One Floor Number of Stairs To Enter/Railing? no steps to enter Home Environment Standard Height Toilet,Walk in Shower Home Equipment Hand Held Shower,Grab Bars In Shower Additional Social History Comment pt has an adjustable bed without rails M2 PT-IP Current Condition Start: 03/04/21 12:38 Freq: NEEDED Status: Active Protocol: Document 03/04/21 08:45 AB (Rec: 03/04/21 12:51 AB [email or web address]) Physical Therapy Current Condition Current Condition Evaluation Date 03/04/21 Treatment Diagnosis pre-syncope; difficulty in walking Onset Date 03/03/21 Precautions Other Precautions falls M3 PT-IP Subjective Start: 03/04/21 12:38 Freq: NEEDED Status: Active Protocol: Document 03/04/21 08:45 AB (Rec: 03/04/21 12:51 AB [email or web address]) Subjective Physical Therapy Visit Type Type Initial Evaluation Visit Start Time 08:45 Visit Stop Time 09:15 Total Visit Minutes 30 Number of BUDGET ACCOUNTANT Visits 0 Physical Therapy Visit Comments Patient Comments pt is agreeable to do PT Therapy Pain Assessment Pain Present Pain Present Denied Pain M4 PT-IP Mobility and Gait Start: 03/04/21 12:38 Freq: NEEDED Status: Active Protocol: Document 03/04/21 08:45 AB (Rec: 03/04/21 12:51 AB [id number]) PT-Bed Mobility Assessment Supine to Sit Supine to Sit Standby Assistance Sit to Supine Sit to Supine Standby Assistance PT-Transfer Assessment Sit to and From Stand Sit to and from Stand Contact Guard Assistance,1 Person Assistance,Use of Upper Extremities Equipment Transfer Assistive Device Gait Belt,Front Wheeled Walker Orthotic/Prosthetic Devices or Brace: No Transfers Transfer Destination Toilet Transfer Technique ambulated using FWW Transfer Ability Level of Assist Contact Guard Assistance, Minimal Assistance,Use of Upper Extremities Comments Mobility Comments pt agreed to do PT. BP monitored: BP ins upine 155/ 73. completed supine to sit SBA. pt sat on EOB SBA. c/o slight lightheadedness. BP in sittin/81. pt completed sit to stand CGA and was able to maintain standing CGA. BP in standin/68. pt requested to use the toilet and abulated to the toilet using FWW CGA to min A. pt was able to complete hygiene care SBA and sit to stand CGA to min A. pt ambulated towards the sink using FWW CGA to min A. completed handwashing, brushing her teeth and grooming needs CGA. pt requested to go back to bed and ambulated to the bed. BP in sittin/70. completed sit to supine SBA. positioned in bed. call light and table placed within reach. Gait Assessment Gait Gait Assistance Required: Contact Guard Assist,Minimum Assistance Distance (Feet) 20 Able to Maintain Weight Bearing Status Yes During Gait Assistive Devices Assistive Device Gait Belt,Front Wheeled Walker Gait Deviations General Gait Pattern Decreased Stride Length, Decreased Feet Clearance, Narrow Based Gait,Step-to Gait Factors Limiting Gait Function Factors Limiting Gait Function Decreased Activity Tolerance, Decreased Strength,Poor Balance,Poor Safety Awareness Comments Gait Comments pls refer to mobility section for details PT-Balance Assessment Sitting Balance and Reactions Static Sitting Balance Ability Good Dynamic Sitting Balance Ability Good Standing Balance and Reactions Static Standing Balance Ability Fair Dynamic Standing Balance Ability Fair Device Used FWW M5 PT-IP Objective Assessments Start: 03/04/21 12:38 Freq: NEEDED Status: Active Protocol: Document 03/04/21 08:45 AB (Rec: 03/04/21 12:51 AB [id number]) Orientation Orientation/Cognition Level of Alertness Alert Orientation Name,Place,Situation Language Function Ability No Deficits Noted Safety Awareness Decreased Safety Awareness Gross Range of Motion Lower Extremity ROM Assessment Within Functional Limits Strength Lower Extremity Strength Hip 4-/5 Knee 4-/5 Muscle Tone Muscle Tone WNL Yes M6 PT-IP Treatment Start: 03/04/21 12:38 Freq: NEEDED Status: Active Protocol: Document 03/04/21 08:45 AB (Rec: 03/04/21 12:51 AB [id number]) Physical Therapy Treatment Education Education Provided Safety M7 PT-IP Assessment and Plan Start: 03/04/21 12:38 Freq: NEEDED Status: Active Protocol: Document 03/04/21 08:45 AB (Rec: 03/04/21 12:51 AB [id number]) PT Summary Assessment and Plan Potential Rehabilitation Potential Good Status of Condition at Evaluation Stable Summary Impairments Pain,ROM,Strength,Balance, Coordination,Sensation,Tone, Cognition,Bed Mobility, Transfers,Gait,Activity Tolerance Assessment Summary pt requiring CGA to min A with mobility and has decrease actviity tolerance affecting functional independence. spouse stated that he can assist pt at home. will conitnue to assess progress for safe d/c plan. Goals Bed Mobility Goal Independent Transfer Goal Independent,Front Wheeled Walker,Four Wheeled Walker Gait Goal Independent,Front Wheel Walker ,Four Wheel Walker Gait Distance 150 Days to Meet Goals 10 Frequency of Treatment Frequency Of Treatment Once a Day Treatment Plan Physical Therapy Treatment Plan Bed Mobility Training,Transfer Training,Gait Training, Therapeutic Exercise,Balance Retraining,Discharge Planning, Neuromuscular Re-ed, Coordination Retraining Precautions Other Precautions falls Recommendations To Nursing Amount of Assist Needed 1 Person Assist Discharge Recommendations PT Discharge Recommendations Home with Assistance,Home Health Transportation Needs at Discharge Private Vehicle
[2021-03-04 09:00] VITALS: BP 131/55; PULSE 58; RESP 16; TEMP 35.6; O2SAT 95
[2021-03-04 09:15] LABS: Magnesium 1.7 mg/dL (1.6-2.3)
[2021-03-04] MEDS: atenoloL 25 MG TABLET PO (09:38)
[2021-03-04] MEDS: ENOXAPARIN 40 MG/0.4 ML SYRINGE SUBCUT (09:38)
[2021-03-04] MEDS: POTASSIUM CHLORIDE 20 MEQ TAB 40 MEQ PO (09:39)
[2021-03-04] MEDS: SODIUM CHLORIDE 0.9% 1,000 ML 100 ML IV (09:45)
[2021-03-04] MEDS: CEFDINIR 300 MG CAPSULE PO (10:38)
--- NOTE | 2021-03-04 11:25 | OT.IP.EVAL ---
Past Medical History (Last Reviewed 03/03/21 @ 22:02 [facility] Glaucoma History of right hip replacement Hypertension, essential Surgical History (Last Reviewed 03/03/21 @ 22:02 by ELAINA ThompsonJESSIKA) History of right hip replacement Occupational Therapy Inpatient Evaluation/Re-Eval M1 PT/OT-IP Prior Functional Status Start: 03/04/21 15:46 Freq: NEEDED Status: Active Protocol: Document 03/04/21 11:25 [facility] (Rec: 03/04/21 16:06 [facility] [id number]) Medical Review Prior Functional Status Medical History Reviewed Yes Communication able to make needs known Mobility and Gait pt stated that she is modified independent with all mobilities and ambulation using either a SPC or 4WW indoors but uses a standard walker for outdoor mobility; pt stated that she started getting weaker for the passed 4 months and needing to use a walker Activities of Daily Living and IADL's Pt states completely independent with all ADL's, IADL's, able to pay the bills and take her own medications. Social History Household Members spouse Living Arrangements House Number of Floors (Floors) One Floor Number of Stairs To Enter/Railing? no steps to enter Home Environment Standard Height Toilet,Walk in Shower Home Equipment Four Wheel Walker,Hand Held Shower,Grab Bars In Shower Additional Social History Comment pt has an adjustable bed without rails Pt has a standard walker she uses on the community and to assist to get into the shower. M2 OT-IP Current Condition Start: 03/04/21 15:46 Freq: Status: Active Protocol: Document 03/04/21 11:25 [facility] (Rec: 03/04/21 16:06 [facility] [id number]) Occupational Therapy Current Condition Current Condition Evaluation Date 03/04/21 Treatment Diagnosis Presyncope Diagnosis Onset Date 03/03/21 M3 OT- IP Subjective and Pain Start: 03/04/21 15:46 Freq: Status: Active Protocol: Document 03/04/21 11:25 [facility] (Rec: 03/04/21 16:06 [facility] [id number]) OT- Subjective Occupational Therapy Visit Type Type Initial Evaluation Visit Start Time 11:25 Visit Stop Time 12:20 Total Visit Minutes 55 Occupational Therapy Visit Comments Patient Comments Pt's in the room and pt wanting to shower. Patient/Caregiver Goals TO go home. OT Pain Assessment Pain When Pain Assessed At Rest Pain Present Pain Present Denied Pain M4 OT- IP ADL's Start: 03/04/21 15:46 Freq: Status: Active Protocol: Document 03/04/21 11:25 [facility] (Rec: 03/04/21 16:06 [facility] [id number]) OT [id number] Comments OT Self-Feeding Comments NOt at meal time. OT ADL-Grooming General Evaluation Grooming Ability Independent OT ADL-Dressing General Eval Lower Body Dressing Ability Standby Assistance Comments OT Dressing Comments set-up assist. Pt able to alex /doff her socks while seated. OT ADL-Toileting General Evaluation Toileting Ability Independent OT ADL-Bathing Bathing Type Bathing Type Shower General Evaluation Bathing Ability Minimal Assistance Areas Needing Assistance Wash/Dry Back Comments OT Bathing Comments Pt stood initially as usually stands at home, but heavily relying on grab bars and then agreed to shower while seated. Pt states has a shower chair that she can use in the shower . M5 OT- IP IADL's Start: 03/04/21 15:46 Freq: Status: Active Protocol: Document 03/04/21 11:25 [facility] (Rec: 03/04/21 16:06 [facility] [id number]) OT-Instrumental Activities of Daily Living Home Safety Awareness Awareness of Need for Assistance at Home Good Awareness Medication Management Medication Management Comments Pt says just takes one pill and uses eye drops at home. Money Management Money Management Comments Pt's states can assist if needed. Meal Preparation Meal Preparation Comments Pt's states to assist as needed. Cook Box Filler Cook Box Filler Comments Pt's states to assist as needed. Driving Driving Comments Pt no longer drives. M6 OT- IP Functional Cognition Start: 03/04/21 15:46 Freq: Status: Active Protocol: Document 03/04/21 11:25 [facility] (Rec: 03/04/21 16:06 [facility] [id number]) Cognitive Factors Limiting Selfcare Function Cognitive Ability Level of Alertness Alert Patient Orientation Name,Age,Birthday,Month,Date, Year,Day of Week,Place, Situation Attention Span Ability Capable of Focused Attention, Capable of Sustained Attention Ability to Follow Commands Able to Follow One Step Commands Memory Description Short Term Impaired Safety Awareness Underestimates Need for Assistance Cognitive Tests SLUMS 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 Pt stated that she has not sleep well which may also affect her score. Pt able to recall 3/5 objects after time passed, not able to draw in correctly the hour hands after time given, and able to answer 3/4 questions right after a paragraph read. Cognitive Comments Cognitive Assessment Comments Pt needing cues for safety, to sit for showering as a little unsteady on her feet. Able to give and go over information regarding energy conservation and fall prevention strategies. OT- Vision and Hearing OT- Hearing Assessment OT- Hearing Assessment Use of Hearing Aids OT- Vision Assessment Visual Acuity Glasses For Reading M7 OT- IP Mobility and Balance Start: 03/04/21 15:46 Freq: Status: Active Protocol: Document 03/04/21 11:25 [facility] (Rec: 03/04/21 16:06 [facility] [id number]) OT- Bed Mobility Assessment Supine to Sit Supine to Sit Assist Independent Sit to Supine Sit to Supine Assist Independent OT-Transfer Assessment Sit to and From Stand Sit to and from Stand Standby Assistance,Contact Guard Assistance Transfers Transfer Ability Standby Assistance,Contact Guard Assistance Technique Transfer Destination Bed,Shower Stall Transfer Technique Stand Step Pivot Devices Transfer Assistive Devices Gait Belt,Front Wheeled Walker Comments Mobility Comments CGA with FWW as pt a little unsteady especially stepping over the threshold of the shower. OT- Gait Assessment Comments Gait Ability Comments SBA/CGA with FWW. OT- Balance Assessment Sitting Balance and Reactions Static Sitting Balance Ability Normal Dynamic Sitting Balance Ability Good Standing Balance and Reactions Static Standing Balance Ability Fair Comments Other Balance Tests/Deviations/Treatment Pt decreased for dynamic : balance. M8 OT- IP Objective Assessments Start: 03/04/21 15:46 Freq: Status: Active Protocol: Document 03/04/21 11:25 [facility] (Rec: 03/04/21 16:06 [facility] [id number]) OT Gross Range of Motion Upper Extremity Range of Motion Assessment Within Functional Limits OT- Coordination Assessment Upper Extremity Finger to Nose Test Within Functional Limits OT-Muscle Tone Assessment Muscle Tone WNL Yes M9 OT- IP Assessment and Plan Start: 03/04/21 15:46 Freq: Status: Active Protocol: Document 03/04/21 11:25 [facility] (Rec: 03/04/21 16:06 [facility] [id number]) OT Summary Assessment and Plan Potential Rehabilitation Potential Good Analytic Complexity at Evaluation Low Summary OT Impairments Balance,Functional Cognition, Functional Mobility,Dressing, Toileting,Bathing,Activity Tolerance Progress Towards Goals Slow Progress due to Activity Tolerance Assessment Summary Pt here due to presyncope and main barriers are decreased activity tolerance, mild decrease in STM, and now would benefit form use of shower chair while showering. In addition for her to supervise and assist as needed for medications and finance needs. Pt to go home when medically stable. Goals Grooming Goal Independent Dressing Goal Independent Toileting Goal Independent Bathing Goal Standby Assistance Toilet Transfer Goal Independent Shower Transfer Goal Independent OT-Other Goals Pt to be able to incorporate energy conservation needs during ADL needs. Days to Meet Goals 1 Frequency of Treatment Frequency Of Treatment Once a Day Treatment Plan OT Treatment Plan ADL Training,Functional Cognition Training,Functional Mobility,Patient/Family Education,Discharge Planning Discharge Recommendations OT Discharge Recommendations Home with Assistance Transportation Needs at Discharge Private Vehicle
[2021-03-04 13:00] VITALS: BP 155/76; PULSE 59; RESP 16; TEMP 35.5; O2SAT 97
--- NOTE | 2021-03-04 13:53 | P.DS_ITS ---
History of Present Illness History of Present Illness Date Patient Seen: 03/04/21 Time Patient Seen: 13:53 Chief complaint: Near Syncope Narrative: Per Petra Perez, DIESEL LOCOMOTIVE ENGINEER-: Patient is a 85 year old female Gretta Rodriguez who presented to the ED today with chief complaint of feeling like she was going to pass out. This feeling came on suddenly about an hour and half ago. She states that she lacked the balance & coordination to even walk with her walker. She reports that she was sitting down at the table after eating breakfast. She suddenly felt weak and nauseous. She is concerned that if she stood up she would pass out. Her symptoms have improved but she is still feeling more weak than normal. She was having breakfast with her friends as she is from out of town visiting. She was able to communicate and speak clearly through the entire process per patient and her . She has past medical history of hypertension and took her antihypertensives this morning. Patient also reports that she takes hydrochlorothiazide daily as needed for lower extremity edema and started taking it once daily approximately 1 month ago. Patient also has history of glaucoma. She denies any significant chest pain, upper back pain, headache, dizziness, vision changes, or any other acute concerns or complaints. She denies any ca rdiac history aside from hypertension. She denies any previous heart attacks, strokes, or feeling similar to this in the past. Upon admit patient is resting comfortably in bed and denies any signs or symptoms at this time. Patient appears dry volume depleted, dry mucous membranes and poor skin turgor. Patient's vitals upon admit temp was stable at 97.7, BP slightly elevated at 150 7/65, HR 77, RR 19, O2 sat 98% on room air. Patient's CBC was unremarkable for any anemias, patient's CMP demonstrated slight hyponatremia sodium 133, chloride 96, BUN 22. All a chemistries were normal patient's BNP was mildly elevated at 439, troponin negative at< 0.012. Urine was positive and sent for culture. Head CT: Within normal limits for age, no acute findings that could explain patient's symptoms. Chest x-ray was without any acute cardiopulmonary processes. EKG does show right bundle-branch block, first-degree AV block, and bifascicular block. Dr. Wolf was able to consult building energy consultant Dr. Barrios from [facility], who stated patient's previous EKG from 2013 was normal sinus rhythm without any block, noting that this was a change. Discharge Providers Provider Date of admission: 03/03/21 17:51 Discharge Date: 03/04/21 Consults: 03/03/21 19:45 Consult to Occupational Therapy Evaluate & Treat Comment: syncope Physician Instructions: Evaluate and treat 03/03/21 19:46 Consult to Physical Therapy Evaluate & Treat Comment: syncope Physician Instructions: Evaluate and Treat 03/03/21 22:05 Consult After Hours PICC Line RN Routine Comment: Midline Discharge provider: Farhad Jesus DO Summary Hospital Course Discharge Diagnosis: 1. Presyncope in the setting of new right bundle-branch block, first-degree AV block, and bifascicular block, acute, present on admission 2. Mild hyponatremia, acute, present on admission 3. Essential hypertension, acute on chronic, present on admission 4. Glaucoma, chronic, present on admission 5. Acute cystitis Hospital Course: This is an 85-year-old female with a history of hypertension and glaucoma who reported several episodes of presyncope. EKG in the emergency room showed a new bifascicular block and first-degree AV block which were proba sarah new based on a call with the patient's primary care office. Troponins were negative over the course of her stay and she had no chest pain or palpitations. She had no recurrence of her symptoms after some IV fluids given to her overnight. Urinalysis was also positive and she was started on oral cefdinir for a urinary tract infection. The patient had no events on telemetry other than bradycardia with a first-degree AV block, from which the patient was not symptomatic. Echocardiogram was performed and showed no wall motion abnormalities and her EF was also normal. She was discharged home on oral antibiotics for her acute cystitis and will follow-up with her primary care provider in [place]. Code status: DNR Surrogate decision maker: Ildefonso Rodriguez Spouse Time Spent with Patient Time spent: Greater than 30 minutes Exam Vital Signs (past 8 hours): - 03/04/21 07:00 03/04/21 09:00 03/04/21 13:00 Temperature 96.1 F L 96 F L Pulse Rate 58 L 59 L Pulse Rate [Orthostatic Lying] 59 L Respiratory Rate 16 16 Blood Pressure 131/55 L 155/76 H Blood Pressure [Orthostatic Lying] 155/76 H Pulse Oximetry 95 97 Oxygen Delivery Method Room Air Oxygen Flow Rate 0 Narrative Exam Narrative: General: Patient is a well-developed, moderately nourished, thin elderly female who looks fluid depleted, in no distress at this time. HEENT: Normocephalic, atraumatic, extraocular muscles intact, oral pharynx is clear and mucous membranes are dry. Neck is supple and symmetric, trachea is midline, no adenopathy, no thyroid enlargement, nontender, no masses palpated. Negative for JVD Chest: Normal AP diameter and contour without kyphoscoliosis, no nasal flaring, retractions, or tachypneic labored Lungs: Auscultation of all lung coyle are clear without adventitious sounds, wheezes, rhonchi, or rales. Cardio: S1 & S2 with regular rate and rhythm with possible whooshing murmur heard loudest over left midclavicular line about 4th intercostal space but without rubs, or gallops, no carotid bruit, no cardiac pulsations present. Abdomen: Soft nontender, negative for organomegaly, or masses. Bowel sounds are present in all 4 quadrants without guarding or rebound, no CVA tenderness. Musculoskeletal: Muscle strength and tone are equal within normal limits, no deformity, crepitus, effusions, cyanosis, clubbing or edema present. Full range of motion intact radial and pedal pulses are normal. Skin: Warm dry, poor skin turgor and intact without rashes, ulcerations or petechiae. Neuro: Alert and orientated x3, strength is +5/5 in all extremities, sensation to touch intact, no gross deficits noted of cranial nerves. Psych: Patient has a well-kept appearance, appropriate affect, mental status attitude thought context and judgment are appropriate for age. Objective Labs Result Diagrams: 03/03/21 12:45 03/04/21 06:35 Labs: Laboratory Results - last 24 hr 03/03/21 03/03/21 03/03/21 12:45 12:45 15:28 PT 11.3 INR 1.0 Sodium Potassium Chloride Carbon Dioxide BUN Creatinine Estimated GFR BUN/Creatinine Ratio Glucose Calcium Magnesium Troponin I < 0.012 NT-Pro-B Natriuret Pep 439 TSH Urine RBC Urine WBC Urine Bacteria Ur Culture Indicated? SARS-CoV-2 (PCR) 0703/03/21 03/03/21 15:28 16:45 17:54 PT INR Sodium Potassium Chloride Carbon Dioxide BUN Creatinine Estimated GFR BUN/Creatinine Ratio Glucose Calcium Magnesium 1.8 Troponin I NT-Pro-B Natriuret Pep TSH Urine RBC 0-1/hpf Urine WBC 10-30/hpf H Urine Bacteria Many (>30) H Ur Culture Indicated? Specimen cultured SARS-CoV-2 (PCR) Negative 03/04/21 03/04/21 03/04/21 06:35 06:35 06:35 PT INR Sodium 134 L Potassium 3.2 L Chloride 103 Carbon Dioxide 26 BUN 13 Creatinine 0.54 Estimated GFR > 60.0 BUN/Creatinine Ratio 24.1 H Glucose 98 Calcium 9.1 Magnesium Troponin I < 0.012 NT-Pro-B Natriuret Pep 535 H TSH 1.07 Urine RBC Urine WBC Urine Bacteria Ur Culture Indicated? SARS-CoV-2 (PCR) 03/04/21 06:35 PT INR Sodium Potassium Chloride Carbon Dioxide BUN Creatinine Estimated GFR BUN/Creatinine Ratio Glucose Calcium Magnesium 1.7 Troponin I NT-Pro-B Natriuret Pep TSH Urine RBC Urine WBC Urine Bacteria Ur Culture Indicated? SARS-CoV-2 (PCR) [facility] Medical History Glaucoma Hypertension, essential Surgical History History of right hip replacement Family History Mother Cancer Hypertension Father Cancer Social History household members: spouse Smoking Status: Former smoker alcohol intake: current Discharge Plan Discharge Plan Patient Disposition: Home Provider Discharge Comment: You were admitted to the hospital with weakness and pre-syncope after your EKG showed a conduction abnormality called a bi- fascicular block. You had an echocardiogram which showed some wear and tear but was functioning well. Your heart monitor overnight showed mildly slow heart rate (upper 40s) but no serious conditions. Recommend PCP follow up when you return to [place]. You were found to have a UTI which could cause some symptoms and you should complete 3 total days of antibiotics (5 more doses). Discharge orders & Medications Prescriptions: New cefdinir 300 mg Capsule 300 mg PO BID 3 Days Qty: 5 RF: 0 Continued atenolol 25 mg tablet 25 mg PO BID RF: 0 hydrochlorothiazide 25 mg tablet 25 mg PO DAILY PRN (Reason: Edema) RF: 0 latanoprost 0.005 % drops 1 drp EYE-BOTH BEDTIME RF: 0 dorzolamide-timolol 22.3-6.8 mg/mL drops 1 drp EYE-BOTH TID RF: 0 brimonidine 0.2 % drops 1 drp EYE-BOTH TID RF: 0 Diet/Activity/Treatments Diet: Diet as Tolerated Activity: As tolerated Visit Report/Discharge Packet Instructions: DI for Syncope in Adults (Fainting), DI for Dehydration -- Adult, DI for Urinary Tract Infection (UTI) Discharge Data Attending Provider: Farhad Jesus VTE Deep Vein Thrombosis/Pulmonary Embolism Present on Admission: No
--- NOTE | 2021-03-04 14:54 | CM.DANOTE ---
Discharge Planning/Care Management DCP: assessment: case received, EMR reviewed and d/c order noted. Met with pt and her Ildefonso, introduced self and role. Pt is an 85 year old female who admitted last evening to care of hospitalist team. Payer: [facility]. PCP:: is at a clinic in [facility]. Pt and her reside in [place]. She will call medical records dept when home and request records be sent to her PCP. P: Pt going home this afternoon as soon as JACK More goes over the d/c directions. No needs re d/c are identified. CM Discharge Assessment Start: 03/04/21 14:53 Freq: Status: Active Protocol: Document 03/04/21 14:54 ITV (Rec: 03/04/21 14:54 ITV [id number]) Discharge Planning Assessment Advance Directives? Yes Advance Directives on File No History Provided By Patient,Medical Record Prior Living Arrangements House Household Members spouse Independent with ADL's Yes Is patient alert and oriented? Yes
== END 2021-03-04 15:00 | disposition home or self-care (01) ==
LOC: ED 17:45 → AC 17:52
PROVIDERS: Emergency Medicine; Nurse Practitioner Family; Admitting Provider Internal Medicine; Emergency Provider Physician Assistant; Referring Provider Physician Assistant; Visit Provider Internal Medicine
DX: I45.19 Other right bundle-branch block (principal); I44.0 Atrioventricular block, first degree; I45.2 Bifascicular block; N30.00 Acute cystitis without hematuria; B96.20 Unspecified Escherichia coli [E. coli] as the cause of diseases classified elsewhere; E87.1 Hypo-osmolality and hyponatremia; I10 Essential (primary) hypertension; H40.89 Other specified glaucoma; Z20.822 Contact with and (suspected) exposure to COVID-19
CPT/HCPCS: 36415; 70450; 71045; 80048; 80053; 81003; 81015; 82550; 82962; 83735; 83880; 84443; 84484; 85025; 85610; 87077; 87086; 87186; 87635; 93005; 93010; 93306; 96361; 96372; 96374; 97161; 97165; 97530; 97535; 99284; C9803; G0378; J1650; J2405